=== PATIENT | male | born 1955 | race Caucasian/White ===

== ENCOUNTER 2016-10-19 00:03 | Emergency (ER) | payer BC, OTHER ==
[2016-10-19] MEDS ORDERED: APRESOLINE 20 MG/ML INJ IV ONE (00:21)
[2016-10-19] MEDS ORDERED: APRESOLINE 20 MG/ML INJ ONE (00:21)
[2016-10-19] MEDS ORDERED: Sodium Chloride 0.9% 1000 ML 1,000 ML ONE (00:21)
--- NOTE | 2016-10-19 00:22 | ERPHSYRPT ---
- History of Present Illness Time Seen by Provider: 10/19/16 00:16 Source: patient Exam Limitations: clinical condition Physician History: PATIENT COMPLAINS OF LEFT SIDED HEADACHE SINCE 1200 NOON ASSOCIATED WITH LIP AND TONGUE NUMBNESS AT 4PM WITH DIFFICULTY ARTICULATING WORDS, OCCASIONAL SLURRED SPEECH. DENIES BLURRED VISION, FOCAL NUMBNESS WEAKNESS IN EXTREMITIES. Timing/Duration: yesterday Quality: throbbing Head Pain Location: temporal Severity of Pain-Max: severe Severity of Pain-Current: severe Recent Head Trauma: no recent headache/trauma Associated Symptoms: other (SLURRED SPEECH) Allergies/Adverse Reactions: No Known Drug Allergies Allergy (Unverified 10/19/16 00:28) Home Medications: Unobtainable [Unobtainable] 10/19/16 [History] - Review of Systems Constitutional: No Fever, No Chills Eyes: No Symptoms Ears, Nose, & Throat: No Symptoms Respiratory: No Cough, No Dyspnea Cardiac: No Symptoms, No Chest Pain, No Edema, No Syncope Abdominal/Gastrointestinal: No Symptoms, No Abdominal Pain, No Nausea, No Vomiting, No Diarrhea Genitourinary Symptoms: No Dysuria Musculoskeletal: No Symptoms, No Back Pain, No Neck Pain Skin: No Symptoms, No Rash Neurological: No Symptoms, Headache, Speech Changes, No Dizziness, No Focal Weakness, No Sensory Changes Psychological: No Symptoms Endocrine: No Symptoms All Other Systems: Reviewed and Negative - Nursing Vital Signs Nursing Vital Signs: Initial Vital Signs Temperature 98 F Temperature Source Oral Pulse Rate 64 Respiratory Rate 16 Blood Pressure [] 135/66 Blood Pressure [] 170/96 Pain Intensity 5 - Physical Exam General Appearance: no apparent distress, alert Eye Exam: PERRL/EOMI Ears, Nose, Throat Exam: normal ENT inspection, moist mucous membranes Neck Exam: normal inspection, supple, full range of motion, No meningismus Respiratory Exam: normal breath sounds, lungs clear Cardiovascular Exam: regular rate/rhythm, normal heart sounds Gastrointestinal/Abdominal Exam: soft, normal bowel sounds, No tenderness, No distention Back Exam: normal inspection, normal range of motion Extremity Exam: normal inspection Mental Status Exam: alert, oriented x 3, cooperative buffet server Exam: normal hearing, normal speech, PERRL, abnormal speech (OCCASIONAL SLURRED SPEECH, NO FACIAL DROOP), No facial droop Coordination/Gait Exam: normal finger to nose, normal gait, normal cerebellar function Motor/Sensory Exam: no motor deficit, no sensory deficit DTR Exam: bicep (R): 2+, bicep (L): 2+, tricep (R): 2+, tricep (L): 2+, knee (R) : 2+, knee (L): 2+, ankle (R): 2+, ankle (L): 2+ Skin Exam: normal color, warm, dry, No rash - CT Exams Head CT Interpretation: Tele-radiologist Report, No/Intracranial Hemorrhag Ordered Tests: Active Orders 24 hr Category Date Time Status EKG-ER Only STAT Care 10/19/16 00:20 Active EKG-ER Only STAT Care 10/19/16 01:32 Active IV Insertion STAT Care 10/19/16 00:20 Active Oxygen-ED Only NASAL CANNULA 2 lpm Care 10/19/16 00:20 Active HEAD WITHOUT CONTRAST [CT] Stat Exams 10/19/16 00:14 Taken CBC W DIFF Stat Lab 10/19/16 00:26 Completed CMP Stat Lab 10/19/16 00:26 Completed PROTIME WITH INR Stat Lab 10/19/16 00:26 Completed Medication Summary Discontinued Medications Generic Name Dose Route Start Last Admin Trade Name Freq PRN Reason Stop Dose Admin Aspirin 325 mg 10/19/16 02:11 10/19/16 02:26 Ecotrin 325 Mg PO 10/19/16 02:12 325 mg STAT ONE Administration Fentanyl Citrate 100 mcg 10/19/16 00:37 10/19/16 00:56 Sublimaze 100 Mcg/2 Ml IV 10/19/16 00:38 100 mcg STAT ONE Administration Fentanyl Citrate Confirm 10/19/16 00:39 Sublimaze 100 Mcg/2 Ml Administered 10/19/16 00:40 Dose 100 mcg .ROUTE .STK-MED ONE Hydralazine HCl 10 mg 10/19/16 00:21 10/19/16 00:48 Apresoline 20 Mg/Ml Inj IV 10/19/16 00:22 10 mg STAT ONE Administration Hydralazine HCl Confirm 10/19/16 00:21 Apresoline 20 Mg/Ml Inj Administered 10/19/16 00:22 Dose 20 mg .ROUTE .STK-MED ONE Sodium Chloride 1,000 mls @ 100 mls/hr 10/19/16 00:30 10/19/16 00:35 Sodium Chloride 0.9% 1000 Ml IV 11/18/16 00:29 100 mls/hr .Q10H DEEP Administration Sodium Chloride Confirm 10/19/16 00:21 Sodium Chloride 0.9% 1000 Ml Administered 10/19/16 00:22 Dose 1,000 mls @ ud .ROUTE .STK-MED ONE Ondansetron HCl 4 mg 10/19/16 00:37 10/19/16 00:41 Zofran 4 Mg/2 Ml Vial IV 10/19/16 00:38 4 mg STAT ONE Administration Ondansetron HCl Confirm 10/19/16 00:38 Zofran 4 Mg/2 Ml Vial Administered 10/19/16 00:39 Dose 4 mg .ROUTE .STK-MED ONE Ondansetron HCl Confirm 10/19/16 02:23 Zofran 4 Mg/2 Ml Vial Administered 10/19/16 02:24 Dose 4 mg .ROUTE .STK-MED ONE Ondansetron HCl 4 mg 10/19/16 02:27 10/19/16 02:28 Zofran 4 Mg/2 Ml Vial IV 10/19/16 02:28 4 mg STAT ONE Administration Lab/Rad Data: Laboratory Result Diagrams 10/19/16 00:26 10/19/16 00:26 Laboratory Results 10/19/16 10/19/16 10/19/16 Range/Units 00:26 00:26 00:26 WBC 13.5 H (4.0-10.5) K/mm3 RBC 6.81 H* (4.1-5.6) M/mm3 Hgb 20.2 H (12.5-18.0) gm/dl Hct 58.8 H (42-50) % MCV 86.3 (78-100) fl MCH 29.6 (26-32) pg MCHC 34.4 (32-36) g/dl RDW 17.0 H (11.5-14.0) % Plt Count 235 (150-450) K/mm3 MPV 10.1 H (6-9.5) fl Gran % 80.2 H (36.0-66.0) % Lymphocytes % 12.4 L (24.0-44.0) % Monocytes % 6.2 (0.0-12.0) % Eosinophils % 1.0 (0.00-5.0) % Basophils % 0.2 (0.0-0.4) % Basophils # 0.03 (0-0.4) INR 0.95 (0.8-3.0) Sodium 140 (136-145) mEq/L Potassium 3.8 (3.5-5.1) mEq/L Chloride 104 (98-107) mEq/L Carbon Dioxide 29.8 (21-32) mEq/L Anion Gap 10.3 (5-15) MEQ/L BUN 12 (9-20) mg/dL Creatinine 1.01 (0.55-1.30) mg/dl Estimated GFR > 60 ML/MIN Glucose 118 H (70-110) MG/DL Calcium 9.6 (8.5-10.1) mg/dL Total Bilirubin 0.70 (0.2-1.0) mg/dL AST 20 (15-37) U/L ALT 30 (12-78) U/L Alkaline Phosphatase 121 H (46-116) U/L Serum Total Protein 7.3 (6.4-8.2) gm/dL Albumin 3.8 (3.4-5.0) g/dL - Progress Progress: re-examined, unchanged Progress Note: 10/19/16 02:39 PATIENT GIVEN IV NORMAL SALINE 200ML/HR, ZOFRAN 4MG , FENTANYL .1MG, HYDRALAZINE 10MG IV Discussed with : Other (DISCUSSED WITH DR SMITH AT [facility]) Counseled pt/family regarding: drug and/or alcohol abuse, lab results, diagnosis , need for follow-up, rad results - Departure Time of Disposition: 03:45 Departure Disposition: Transfer Clinical Impression: ACUTE CVA, POLYCYTHREMIA VERA Condition: Stable Critical Care Time: No Referrals: DOCTOR,NO FAMILY [Primary Care Provider] - Instructions: Headache
[2016-10-19 00:30] LABS: BASOPHIL % 0.2 % (0.0-0.4); Granulocytes % 80.2 % (36.0-66.0); Lymphocytes % 12.4 % (24.0-44.0); Mean Cell Volume 86.3 fl (78-100); Mean Platelet Volume 10.1 fl (6-9.5); Monocytes % 6.2 % (0.0-12.0); Platelet Count 235 K/mm3 (150-450); White Blood Count 13.5 K/mm3 (4.0-10.5)
[2016-10-19] MEDS ORDERED: Sodium Chloride 0.9% 1000 ML 1,000 ML IV SCH (00:30)
[2016-10-19 00:32] LABS: Mean Corpuscular Hemoglobin 29.6 pg (26-32)
[2016-10-19] MEDS ORDERED: Zofran 4 MG/2 ML VIAL IV ONE ×2 (00:37→02:27)
[2016-10-19] MEDS ORDERED: SUBLIMAZE 100 MCG/2 ML IV ONE (00:37)
[2016-10-19] MEDS ORDERED: Zofran 4 MG/2 ML VIAL ONE ×2 (00:38→02:23)
[2016-10-19 00:39] LABS: Red Blood Count 6.81 M/mm3 (4.1-5.6)
[2016-10-19] MEDS ORDERED: SUBLIMAZE 100 MCG/2 ML ONE (00:39)
[2016-10-19 00:48] LABS: INR 0.95 (0.8-3.0); PROTIME 10.7 SECONDS (8.83-12.87)
[2016-10-19 00:56] LABS: ALBUMIN 3.8 g/dL (3.4-5.0); ALKALINE PHOSPHATASE 121 U/L (46-116); ANION GAP 10.3 MEQ/L (5-15); BLOOD UREA NITROGEN 12 mg/dL (9-20); CHLORIDE 104 mEq/L (98-107); Carbon Dioxide 29.8 mEq/L (21-32); Glucose 118 MG/DL (70-110); Potassium 3.8 mEq/L (3.5-5.1); SGOT/AST 20 U/L (15-37); SGPT/ALT 30 U/L (12-78); SODIUM 140 mEq/L (136-145); Total Protein 7.3 gm/dL (6.4-8.2)
[2016-10-19 02:03] VITALS: O2SAT 96
[2016-10-19] MEDS ORDERED: Ecotrin 325 MG PO ONE (02:11)
[2016-10-19 02:57] VITALS: BP 135/66; PULSE 64
--- NOTE | 2016-10-19 20:57 | XRAY ---
Exam: CT of the head without IV contrast from 10/19/2016. CTDI: 67.41 Comparison: None. Indication: Severe headache, receptive aphasia, perioral numbness, trouble with memory, consider stroke. Technique: Non-IV contrast axial images were obtained through the brain. Reconstructed coronal and sagittal images were created and reviewed. Findings: The ventricles appear of unremarkable size and configuration. No focal mass effect or midline shift is seen. No acute intracranial bleed or abnormal extra-axial fluid collection is seen. The ribeiro matter-white matter interfaces appear unremarkable. No focal low attenuation lesion is seen to suggest a cortical infarct or focal edema. The cortical sulci and basilar cisterns appear unremarkable for age. The calvarium of the skull appears intact revealing no fracture or focal destructive lesion. The visualized paranasal sinuses and mastoid air cells appear unremarkable. The orbits reveal no gross abnormality. There is mild deviation of the mid aspect of the nasal septum toward the right. Impression: 1. No acute intracranial bleed or other acute brain process is seen. 2. Specifically, I see no CT findings to suggest a stroke at this time. Consider further evaluation with an MRI of the brain with diffusion-weighted imaging if symptoms persist.
== END 2016-10-19 03:54 | disposition short-term general hospital (02) ==
LOC: ED 00:03
DX: I63.9 Cerebral infarction, unspecified (principal); D45 Polycythemia vera; R51 Headache
CPT/HCPCS: 36000; 36415; 70450; 80053; 85025; 85610; 93005; 96360; 96361; 96374; 96375; 96376; 99285; J0360; J2405; J3010; A9270-GY

== ENCOUNTER 2022-03-15 05:49 | Day surgery (SDC) | payer MEDICARE, OTHER ==
[2022-03-15] MEDS ORDERED: Lactated Ringers 1,000 ML IV SCH (06:30)
[2022-03-15] MEDS ORDERED: DIPRIVAN 200 MG/20 ML IV ONE ×2 (07:18→07:52)
[2022-03-15] MEDS ORDERED: Xylocaine-Mpf 2% 5 Ml Vial ONE (07:19)
[2022-03-15] MEDS ORDERED: Zofran 4 MG/2 ML VIAL ONE (08:11)
[2022-03-15 08:35] VITALS: PULSE 81; O2SAT 96
[2022-03-15 08:54] VITALS: BP 146/88
--- NOTE | 2022-03-15 09:15 | OP ---
SURGERY DATE/TIME: 03/15/2022 0728 PREOPERATIVE DIAGNOSIS: Positive Cologuard. POSTOPERATIVE DIAGNOSIS: Multiple colon polyps throughout the colon and mild sigmoid diverticulosis. PROCEDURE: Colonoscopy. SURGEON: Dr. Jaiden Andrea. ANESTHESIA: MAC. Medications given by anesthesia department. HISTORY: The patient is a 67-year-old white male patient presenting now after positive Cologuard test. The patient also takes aspirin and Plavix and had taken them fairly recently. The patient had already been prepped when I was informed of this and therefore we decided to go ahead and do what I thought at the time was just a screening colonoscopy. The patient was appraised of the risks of the procedure including the risk of perforation, phlebitis, untoward reaction to medication, increased risk of bleeding particularly with having had taken aspirin and Plavix. The patient verbalized his understanding and desired to have the procedure performed. DESCRIPTION OF PROCEDURE: The patient was given the medications by the anesthesia department. He had continuous pulse oximetry, ECG monitoring, intermittent blood pressure monitoring during the examination. He was placed in the left lateral decubitus position. A digital rectal examination was performed and revealed normal anal sphincter tone with one small nodule felt during the digital examination. The prostate was felt to be normal. The flexible Olympus pediatric colonoscope was used to intubate the rectum. A view of the colon was developed sequentially to the cecum. Polyps were noted throughout the colon all the way from the rectum to the cecum. The scope was removed from the patient who tolerated the procedure well. He was also noted to have sigmoid diverticulosis which was mild to moderate in nature. The scope was removed from the patient who tolerated the procedure well and sent back to outpatient recovery in good condition. The prep was noted to be fair to good. The patient will be informed of the diagnosis and given an appointment to see Dr. Camden Balderrama in [place] at [facility] for removal of these polyps.
== END 2022-03-15 09:01 | disposition home or self-care (01) ==
LOC: SDC 05:49
PROVIDERS: ATTEND Family Medicine
DX: K63.5 Polyp of colon (principal); R19.5 Other fecal abnormalities; K57.30 Diverticulosis of large intestine without perforation or abscess without bleeding
CPT/HCPCS: J2405; J2704